=== PATIENT | female | born 1985 | race Caucasian/White ===

== ENCOUNTER 2020-05-20 15:46 | Emergency (ER) | payer OTHER ==
[2020-05-20 15:56] VITALS: BMI 27.4
[2020-05-20] MEDS ORDERED: diazePAM 5 MG TABLET PO ONE (16:39)
[2020-05-20] MEDS ORDERED: SODIUM CHLORIDE 0.9% 500 ML INFUS.BAG IV ONE (16:39)
[2020-05-20] MEDS ORDERED: diazePAM 5 MG TABLET ONE (16:53)
[2020-05-20 17:36] LABS: EOS % 0.3 % (0-4.5); LYMPH % 8.6 % (8-40); RBC 4.44 M/mm3 (3.60-5.2)
[2020-05-20 17:41] LABS: BASO % 0.3 % (0-2.0); HEMATOCRIT 39.2 % (32.4-45.2); MCH 29.3 pg (25.7-33.7); MCHC 33.2 g/dl (32.0-36.0); MEAN CELL VOLUME 88.3 fl (80-96); MEAN PLT VOLUME 8.3 fl (7.5-11.1); MONO % 3.6 % (3.8-10.2); NEUT % 87.2 % (42.8-82.8); PLATELET COUNT 307 K/MM3 (134-434); RDW 12.4 % (11.6-15.6); WHITE BLOOD COUNT 13.1 K/mm3 (4.0-10.8)
[2020-05-20 17:52] LABS: ALBUMIN 4.3 g/dl (3.4-5.0); BILIRUBIN,TOTAL 1.1 mg/dl (0.2-1); CREATININE 0.6 mg/dl (0.55-1.3); TOT PROT 7.2 g/dl (6.4-8.2)
[2020-05-20] MEDS ORDERED: HYDROmorphone HCL CARPU-JECT 1 MG/1 ML DISP.SYRIN IVPUSH ONE ×2 (18:54→19:08)
[2020-05-20 19:03] LABS: POTASSIUM 4.4 mmol/L (3.5-5.1)
[2020-05-20] MEDS ORDERED: HYDROmorphone HCL/PF 1 MG/ML VIAL ONE ×2 (19:03→19:37)
[2020-05-20 19:05] LABS: CALCIUM 9.3 mg/dL (8.5-10.1)
[2020-05-20] MEDS ORDERED: KETOROLAC TROMETHAMINE 15 MG/ML VIAL IVPUSH ONE (19:08)
[2020-05-20] MEDS ORDERED: KETOROLAC TROMETHAMINE 30 MG/1 ML VIAL ONE (19:38)
[2020-05-20 23:52] LABS: INR 1.24 (0.82-1.09); PROTHROMBIN TIME (PATIENT) 13.7 SEC (10.2-13.0)
[2020-05-21] MEDS ORDERED: HYDROmorphone HCL CARPU-JECT 2 MG/1 ML DISP.SYRIN IVPUSH ONE ×3 (00:07→03:55)
[2020-05-21] MEDS ORDERED: HYDROmorphone HCL/PF 1 MG/ML VIAL ONE ×3 (00:09→03:59)
[2020-05-21 01:06] VITALS: BP 107/62; PULSE 75; TEMP 98.7
[2020-05-21] MEDS ORDERED: SODIUM CHLORIDE 1,000 ML IV ONE (03:48)
== END 2020-05-21 04:05 | disposition short-term general hospital (02) ==
LOC: FER 15:46
PROC: 3E0337Z Introduction of Electrolytic and Water Balance Substance into Peripheral Vein, Percutaneous Approach (ICD-10-PCS; principal; 2020-05-20)
PROC: 3E033GC Introduction of Other Therapeutic Substance into Peripheral Vein, Percutaneous Approach (ICD-10-PCS; principal; 2020-05-20)
DX: T75.4XXA Electrocution, initial encounter (principal); S72.002A Fracture of unspecified part of neck of left femur, initial encounter for closed fracture; Y99.8 Other external cause status
CPT/HCPCS: 36415; 73700-TC-RT; 80053; 82550; 82553; 85025; 85610; 86850; 86900; 86901; 99285-25; C9803; U0003; U0005

== ENCOUNTER 2020-08-22 10:56 | Emergency (ER) | payer BC, OTHER ==
[2020-08-22 11:10] VITALS: BP 108/72; PULSE 58; TEMP 99.6; BMI 25.7
[2020-08-22] MEDS ORDERED: DIPHTH,PERTUSS(ACELL),TET 0.5 ML DISP.SYRIN IM ONE ×2 (11:38→11:53)
== END 2020-08-22 12:01 | disposition home or self-care (01) ==
LOC: FER 10:56
PROC: 3E0234Z Introduction of Serum, Toxoid and Vaccine into Muscle, Percutaneous Approach (ICD-10-PCS; principal; 2020-08-22)
DX: S61.214A Laceration without foreign body of right ring finger without damage to nail, initial encounter (principal)
CPT/HCPCS: 90715; 99284-25

== ENCOUNTER 2022-01-02 04:22 | Day surgery (SDC) | payer BC ==
[2021-12-29 17:40] VITALS: BMI 25.7
[2022-01-02] MEDS ORDERED: PROPOFOL 20 ML ONE (12:09)
[2022-01-02] MEDS ORDERED: MIDAZOLAM HCL 2 MG/2 ML SINGLE DOSE VIAL ONE (12:09)
[2022-01-02] MEDS ORDERED: SUCCINYLCHOLINE CHLORIDE 200 MG/10 ML SYRINGE ONE (12:09)
[2022-01-02] MEDS ORDERED: IODINE/POTASSIUM IODIDE 5%/10% 14 ML BOTTLE NR ONE (13:26)
[2022-01-02] MEDS ORDERED: LIDOCAINE HCL 1% EPINEPHRINE 1:200,000 30 ML VIAL (PF) ONE (13:29)
[2022-01-02] MEDS ORDERED: FERRIC SUBSULFATE 500 ML BOTTLE TP ONE (13:32)
[2022-01-02] MEDS ORDERED: MEPERIDINE HCL 25 MG/ML VIAL IVPUSH ONE (13:57)
[2022-01-02] MEDS ORDERED: ONDANSETRON 4 MG/2 ML VIAL IVPUSH PRN (13:57)
[2022-01-02] MEDS ORDERED: oxyCODONE HCL 5 MG TABLET PO PRN (13:57)
[2022-01-02] MEDS ORDERED: LACTATED RINGERS SOLUTION 1,000 ML IV SCH (14:00)
[2022-01-02 17:03] VITALS: RESP 20; TEMP 98.1
[2022-01-02 17:11] VITALS: BP 112/63; PULSE 65
== END 2022-01-02 15:40 | disposition home or self-care (01) ==
LOC: JASU-SURG 04:22
PROVIDERS: ATTEND Obstetrics & Gynecology
PROC: 0UBC7ZX Excision of Cervix, Via Natural or Artificial Opening, Diagnostic (ICD-10-PCS; principal; 2022-01-02 12:00)
DX: N87.1 Moderate cervical dysplasia (principal); R87.810 Cervical high risk human papillomavirus (HPV) DNA test positive
CPT/HCPCS: 88305-TC; 88307-TC; 94760

== ENCOUNTER 2022-07-28 16:11 | Emergency (ER) | payer BC ==
[2022-07-28 16:36] VITALS: BP 114/78; PULSE 87; RESP 20; TEMP 99.5; BMI 25.0
== END 2022-07-28 18:16 | disposition home or self-care (01) ==
LOC: FER 16:11
DX: R07.0 Pain in throat (principal); R53.83 Other fatigue; R53.81 Other malaise; B34.9 Viral infection, unspecified; Z20.822 Contact with and (suspected) exposure to COVID-19
CPT/HCPCS: 0241U-QW; 99283-25

== ENCOUNTER 2022-09-03 21:56 | Emergency (ER) | payer OTHER, BC ==
[2022-09-03 22:07] VITALS: BP 111/76; PULSE 84; RESP 18; TEMP 97.3; BMI 28.3
== END 2022-09-03 22:58 | disposition home or self-care (01) ==
LOC: FER 21:56
DX: M25.531 Pain in right wrist (principal); S63.501A Unspecified sprain of right wrist, initial encounter; X50.0XXA Overexertion from strenuous movement or load, initial encounter
CPT/HCPCS: 99282-25

== ENCOUNTER 2023-01-28 21:15 | Emergency (ER) | payer OTHER ==
[2023-01-28 21:21] VITALS: BP 107/72; PULSE 98; RESP 18; TEMP 98.4; BMI 25.7
[2023-01-28] MEDS ORDERED: ACETAMINOPHEN 500 MG TABLET (FP) PO ONE (22:16)
[2023-01-28] MEDS ORDERED: ACETAMINOPHEN 500 MG TABLET (FP) ONE (22:35)
== END 2023-01-28 23:51 | disposition home or self-care (01) ==
LOC: FER 21:15
DX: S16.1XXA Strain of muscle, fascia and tendon at neck level, initial encounter (principal); S09.93XA Unspecified injury of face, initial encounter; Y35.811A Legal intervention involving manhandling, law enforcement official injured, initial encounter
CPT/HCPCS: 99283-25